=== PATIENT | male | born 1965 | race Hispanic/Latino ===

== ENCOUNTER 2017-08-11 11:31 | Outpatient (CLI) | payer BC ==
[~2017-08-11 11:31] MED LIST: Magnevist 469MG/ML 20 ML VIAL ONE
--- NOTE | 2017-08-11 13:34 | MRI ---
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 Technique: Multiplanar, multisequence MRI images were obtained of the brain without and with IV contr ast. FINDINGS: The previously seen lesion in the right temporal lobe, peripherally, is no longer present. There is a small amount of susceptibility artifact in this location which may represent a small amount of resid ual hemosiderin deposition in this location. No other signal abnormality is seen within the brain. No abnormal intracranial enhancement is seen. The expected flow voids are present. The corpus callosum, pituitary, and craniocervical junction are unremarkable. Post-surgical changes are seen in the right frontal calvarium. The paranasal sinuses and mastoid air cells are well aerated. IMPRESSION: Interval resection of the previously seen right frontal lobe mass. There is no evidence of recurrence and no additional masses are identified. POS: JHOAN
== END 2017-08-11 11:32 | disposition home or self-care (01) ==
LOC: SCSMRI 11:31
PROVIDERS: ATTEND Neurological Surgery
DX: D18.02 Hemangioma of intracranial structures (principal); Z98.890 Other specified postprocedural states
CPT/HCPCS: 70553; A9579

== ENCOUNTER 2019-04-05 08:02 | Outpatient (CLI) | payer BC ==
[2019-04-05 14:58] LABS: Bacteria/HPF None Seen HPF (None Seen); Bilirubin Negative (Negative); Blood, Urine Negative (Negative); Clarity Clear (Clear); Glucose, Urine (Dipstick) Normal (Negative); Leukocyte Negative Leu/uL (Negative); Nitrite Negative (Negative); Protein, Urine (Dipstick) Negative (Neg-Trace); RBC/HPF 0-3 HPF (0-3); Squamous Epithelial None Seen HPF (0-3); Urobilinogen Normal mg/dL (Less than 2); WBC/HPF 0-3 HPF (0-3)
[2019-04-05 14:59] LABS: #Basophils 0.1 thou/uL (0.0-0.2); #Eosinphils 0.2 thou/uL (0.0-0.7); #Lymphocytes 1.5 thou/uL (1.20-3.40); #Monocytes 0.5 thou/uL (0.11-0.59); #Neutrophils 3.6 thou/uL (1.40-6.50); %Basophils 0.9 % (0.0-1.0); %Eosinophils 3.2 % (0.0-10.0); %Lymphocytes 26.2 % (21.0-51.0); %Neutrophils 61.7 % (42.0-75.0); Hemoglobin 13.9 g/dL (14.0-18.0); Mean Corpuscular HGB CONC 33.2 g/dL (32.0-36.0); Mean Corpuscular Hemoglobin 31.8 pg (27.0-31.0); Mean Platelet Volume 8.2 fL (7.4-10.4); Platelet Count 299 thou/uL (130-400); RBC Distribution Width 11.4 % (11.5-14.5); Red Blood Cell (RBC) Count 4.37 mill/uL (4.70-6.10); White Blood Cell (WBC) Count 5.8 thou/uL (4.8-10.8)
[2019-04-05 15:04] LABS: INR-International Normal Ratio 0.9; Prothrombin Time 11.9 SEC (12.0-14.7)
[2019-04-05 15:18] LABS: Anion Gap 12 mmol/L (10-20); BUN (Urea Nitrogen) 14 mg/dL (8.4-25.7); Calc. Creatinine Clearance 0 mL/min (70-130); Calcium 9.1 mg/dL (7.8-10.44); Carbon Dioxide 30 mmol/L (22-29); Chloride 103 mmol/L (98-107); Estimated GFR-MDRD Greater than 90; Glucose 114 mg/dL (70-105); Potassium 4.2 mmol/L (3.5-5.1); Sodium 141 mmol/L (136-145)
== END 2019-04-05 08:03 | disposition home or self-care (01) ==
LOC: LABBT 08:02
PROVIDERS: ATTEND Orthopaedic Surgery
DX: Z01.812 Encounter for preprocedural laboratory examination (principal); M16.11 Unilateral primary osteoarthritis, right hip
CPT/HCPCS: 80048; 81001; 85025; 85610; 87081

== ENCOUNTER 2019-04-05 13:15 | Inpatient (IN) | payer BC ==
[2019-04-12] MEDS ORDERED: Sodium Chloride 0.9% 100 ML ONE (07:49)
[2019-04-12] MEDS ORDERED: Tranexamic Acid 1,000 MG/10 ML VIAL ONE (07:49)
[2019-04-12] MEDS ORDERED: Midazolam HCl 2 mg/2 ml Vial ONE (08:32)
[2019-04-12] MEDS ORDERED: Bupivacaine 0.25% 10 ML VIAL EPIDURAL PRN (08:45)
[2019-04-12] MEDS ORDERED: diphenhydrAMINE 25 MG CAP PO PRN ×2 (08:45→09:41)
[2019-04-12] MEDS ORDERED: Ondansetron PF 4 MG/2 ML Vial IVP PRN ×2 (08:45→09:41)
[2019-04-12] MEDS ORDERED: traMADol HCl 50 MG TAB PO PRN ×2 (08:45)
[2019-04-12] MEDS ORDERED: Hydrocerin (Eucerin) Cream 120 gm Jar TOP PRN (08:45)
[2019-04-12] MEDS ORDERED: diphenhydrAMINE 50 MG/ML VIAL IM PRN (08:45)
[2019-04-12] MEDS ORDERED: Promethazine HCl 25 MG/ML VIAL IM PRN ×3 (08:45→11:44)
[2019-04-12] MEDS ORDERED: Promethazine HCl 25 MG SUPP PR PRN (08:45)
[2019-04-12] MEDS ORDERED: diphenhydrAMINE 50 MG/ML VIAL IVP PRN (08:45)
[2019-04-12] MEDS ORDERED: Zolpidem Tartrate 5 MG TAB PO PRN ×2 (08:45→09:41)
[2019-04-12] MEDS ORDERED: Naloxone HCl 0.4 mg/ml Vial IVP PRN (08:45)
[2019-04-12] MEDS ORDERED: Naloxone HCl 0.4 mg/ml Vial IV PRN (08:45)
[2019-04-12] MEDS ORDERED: Bupivacaine 10 ML in Sodium Chloride 0.9% 90 ML EPIDURAL SCH (09:00)
[2019-04-12] MEDS ORDERED: Fentanyl 100 MCG/2 ML VIAL ONE ×4 (09:33→12:36)
[2019-04-12] MEDS ORDERED: Bupivacaine 0.25% HCL 30 ML VIAL ONE (09:33)
[2019-04-12] MEDS ORDERED: Lidocaine 2% Jelly 5 ML TUBE ONE (09:33)
[2019-04-12] MEDS ORDERED: Acetaminophen 325 MG TAB PO PRN (09:41)
[2019-04-12] MEDS ORDERED: HYDROcodone/Acetaminophen 10/325 mg Tablet PO PRN ×2 (09:41)
[2019-04-12] MEDS ORDERED: Non-Formulary Item 1 EACH (Acetaminophen [Tylenol] 2 TAB) PO PRN (09:43)
[2019-04-12] MEDS ORDERED: Lidocaine 1% PF 5 ML VIAL ONE (10:26)
[2019-04-12] MEDS ORDERED: Dexamethasone 20 MG/5 ML VIAL ONE (10:26)
[2019-04-12] MEDS ORDERED: Lidocaine 1.5% w/Epi 1:200K 30 ML VIAL (Epid Use) ONE (10:26)
[2019-04-12] MEDS ORDERED: PROPOFOL 200 MG/20 ML VIAL ONE (10:26)
[2019-04-12] MEDS ORDERED: Rocuronium Bromide 10 MG/ML (10ML VIAL) ONE (10:26)
[2019-04-12] MEDS ORDERED: Glycopyrrolate 0.2 MG/ML 5 ML SYRINGE ONE (10:26)
[2019-04-12] MEDS ORDERED: Ondansetron PF 4 MG/2 ML Vial ONE (11:41)
[2019-04-12] MEDS ORDERED: Ondansetron HCl/PF 4 MG/2 ML Vial IVP PRN (11:44)
[2019-04-12] MEDS ORDERED: Promethazine HCl 25 MG/ML VIAL SLOW IVP PRN (11:44)
--- NOTE | 2019-04-12 11:45 | OP ---
DATE OF PROCEDURE: 04/12/2019 This is Dani Delatorre PA-C dictating for Samir Purdy MD. ANESTHESIA: General via endotracheal tube, augmented with indwelling epidural. PREOPERATIVE DIAGNOSIS: End-stage bicompartmental osteoarthritis, right hip. POSTOPERATIVE DIAGNOSIS: End-stage bicompartmental osteoarthritis, right hip. PROCEDURE PERFORMED: Press-fit right total hip arthroplasty. SURGEON: Samir Purdy MD. [employer] MEMBER: Dani Delatorre PA-C COMPONENT USED: [employer] Tritanium size 54 mm press-fit, Tritanium acetabular shell, an Accolade II size 3 press-fit hip stem, 10 degree polyethylene fixed bearing insert, and a +7.5 mm ceramic femoral head. ESTIMATED BLOOD LOSS: 100 mL. SPECIMENS: None. DRAINS: None. COMPLICATIONS: None. COUNTS: Correct. FINDINGS: End-stage severe degenerative bicompartmental disease, [id number] arthrosis, periarticular osteophyte formation, large serous effusion, and hypertrophic synovium, changes consistent with degenerative bicompartmental OA. INPUT: 600 mL of crystalloid. OUTPUT: 300 mL of clear yellow urine. INDICATION FOR SURGERY: Alma is a 54-year-old male who has had progressive right hip, groin, and thigh pain for the last 5 to 7 years. He has failed conservative management, elected to proceed with total hip arthroplasty as definitive treatment of his pain. PROCEDURE IN DETAIL: After informed consent was obtained in the preoperative holding area, the patient was taken to the operative suite where general anesthesia was induced. The patient was then positioned in the lateral decubitus position. The hip was then prepped and draped in usual sterile fashion. The patient received preoperative antibiotics. Prior to incision, time-out was called and all members of the surgical team agreed upon site, surgeon, and patient. After this, a longitudinal incision was made directly over the trochanter, noted by palpation extending 2 fingerbreadths above and below the trochanter. The deeper subcutaneous layer was undermined with Bovie electrocautery. The iliotibial band was encountered and incised sharply and the plane below this was developed bluntly. A Charnley retractor was placed to hold this opened. The lateral aspect of the trochanter and the abductor muscles were encountered and then reflected anteriorly off the trochanter using Bovie electrocautery. Once this was completed, the anterior capsule was then encountered and identified and copious capsulotomy was carried out, exposing the femoral neck and head. Dislocation maneuver was then performed and an in situ provisional neck cut was then made using the oscillating saw. Attention was then turned to acetabular preparation. Sequential reaming was carried out up to the appropriate diameter and a trial was then malleted into place with good firm resistance and no pullout. The permanent acetabular shell was then malleted squarely into place, as was the appropriate liner. Once completed, the wound was copiously irrigated and attention was then turned to femoral preparation. Flexion and external rotation were performed of the exposed thigh and femoral elevators were then placed at the proximal aspect of the wound. Canal finder was used to establish the length of the canal and sequential reaming was carried out, followed by broaching. Once the appropriate stability was established with the trial broaches with flexion, extension and rotational stability, we did trial with neutral and 2 mm offset incremental necks. Once the appropriate size was decided upon, with good stability noted with flexion, extension, internal and external rotation and shuck being negative, we removed the femoral trial broach and malletted into place the permanent prosthesis with good firm fit, which was also stable to rotation. Again, the hip felt very stable to flexion, extension, internal and external rotation. Leg lengths appeared near anatomic clinically and we were quite happy with prosthesis placement. Copious irrigation was then carried out through the entirety of the wound. Primary closure of the abductors was accomplished with interrupted #2 Vicryl [id number] stitches and the IT band was then closed with interrupted #2 Vicryl, oversewn with a #2 running barbed Quill stitch. Subcutaneous fascia was closed with running barbed Quill stitch and a subcuticular Monocryl barbed Quill stitch was used for skin closure and augmented with skin cement. A sterile dressing was applied. The procedure was terminated without any complication. All counts were correct. The patient was awakened in the operative suite and taken to the recovery room in stable condition. Job ID: [id number]
[2019-04-12] MEDS ORDERED: Ketorolac Tromethamine 30 MG/ML VIAL ONE (11:55)
--- NOTE | 2019-04-12 12:28 | RAD ---
XR Hip Rt 2-3 View INDICATION: Postop right hip COMPARISON: March 27 2019 FINDINGS: Bones: No acute osseous abnormality. Bone mineralization appears within normal limits. Hip joint: There is been interval placement of a right total hip arthroplasty. Prosthetic components project in the expected position. SI joints and symphysis pubis: Radiographically normal. Intrapelvic contents: Visualized bowel gas pattern is within normal limits. Surrounding soft tissues: There is mild surrounding soft tissue gas consistent patient's recent posto perative state. IMPRESSION: 1. Postoperative right hip
[2019-04-12] MEDS: Acetaminophen 500 MG TAB PO SCH ×3 (15:36→23:12)
[2019-04-12] MEDS: Sodium Chloride 0.9% 1,000 ML IV SCH ×2 (15:36→19:38)
[2019-04-12] MEDS: Ketorolac Tromethamine 30 MG/ML VIAL IVP SCH ×3 (15:37→23:11)
[2019-04-12] MEDS: CEFAZOLIN 2 GM in Premix Bag 1 BAG IVPB SCH ×2 (16:34→23:11)
[2019-04-12 18:35] VITALS: BMI 25.5
[2019-04-12] MEDS: Aspirin 81 mg Enteric Coated Tablet PO SCH (19:58)
[2019-04-12] MEDS ORDERED: Atorvastatin Calcium 10 MG TAB PO SCH (21:00)
--- NOTE | 2019-04-12 23:35 | PDOC.HOSPP ---
- Subjective Encounter Date: 04/12/19 Encounter Time: 19:30 Subjective: Patient seen and examined for med mngt. Follows Dr Lazar. Pain controlled. No new complaints. - Objective Vital Signs & Weight: Vital Signs (12 hours) Temp Pulse Resp BP Pulse Ox 04/12/19 21:05 98.8 F 70 18 123/68 95 04/12/19 18:47 64 14 127/66 04/12/19 16:10 63 12 120/68 04/12/19 15:10 73 16 149/74 H 04/12/19 14:40 52 L 18 122/67 04/12/19 14:10 68 16 156/83 H 04/12/19 13:40 98 F 51 L 16 159/74 H 96 Weight Weight 168 lb Result Diagrams: 04/13/19 05:04 EKG Reviewed by me: Yes (Tele strips - SR) Hospitalist ROS - Review of Systems Respiratory: denies: cough, dry, shortness of breath, hemoptysis, SOB with excertion, pleuritic pain, sputum, wheezing, other Cardiovascular: denies: chest pain, palpitations, orthopnea, paroxysmal noc. dyspnea, edema, light headedness, other Gastrointestinal: denies: nausea, vomiting, abdominal pain, diarrhea, constipation, melena, hematochezia, other - Medication Medications: Active Medications Generic Name Dose Route Start Last Admin Trade Name Freq PRN Reason Stop Dose Admin Acetaminophen 1,000 mg 04/12/19 12:00 04/12/19 23:12 Tylenol PO Not Given Q6HR ISAK Aspirin 81 mg 04/12/19 21:00 04/12/19 19:58 Ecotrin PO 81 mg BID ISAK Administration Atorvastatin Calcium 10 mg 04/12/19 21:00 04/12/19 19:58 Lipitor PO 10 mg HS ISAK Administration Cefazolin Sodium/Dextrose 2 gm 50 mls @ 100 mls/hr 04/12/19 16:00 04/12/19 23 :11 / Device IVPB 04/13/19 00:28 50 mls [id number] ISAK Administration Sodium Chloride 1,000 mls @ 100 mls/hr 04/12/19 09:45 04/12/19 19:38 Normal Saline 0.9% IV Not Given .Q10H ISAK Ketorolac Tromethamine 30 mg 04/12/19 12:00 04/12/19 23:11 Toradol IVP 04/14/19 06:01 30 mg Q6HR ISAK Administration - Exam General Appearance: NAD Neck: supple, no JVD Heart: RRR, no gallops Respiratory: CTAB, no rales Gastrointestinal: non-tender, non-distended, normal bowel sounds Extremities: no cyanosis Neurological: no new deficit Hosp A/P (1) HLD (hyperlipidemia) Code(s): E78.5 - HYPERLIPIDEMIA, UNSPECIFIED Status: Chronic (2) DJD (degenerative joint disease) Code(s): M19.90 - UNSPECIFIED OSTEOARTHRITIS, UNSPECIFIED SITE Status: Chronic - Plan DVT proph w/SCDs Cont Statins Cont Postop care DVT prophylaxis IS Will follow PRN
[2019-04-13] MEDS: Sodium Chloride 0.9% 1,000 ML IV SCH (04:47)
[2019-04-13] MEDS: Ketorolac Tromethamine 30 MG/ML VIAL IVP SCH ×2 (05:01→12:00)
[2019-04-13] MEDS: Acetaminophen 500 MG TAB PO SCH ×2 (05:01→12:00)
[2019-04-13 05:18] LABS: Hemoglobin 12.1 g/dL (14.0-18.0); Mean Platelet Volume 8.2 fL (7.4-10.4); Platelet Count 224 thou/uL (130-400); RBC Distribution Width 11.3 % (11.5-14.5); Red Blood Cell (RBC) Count 3.91 mill/uL (4.70-6.10); White Blood Cell (WBC) Count 9.2 thou/uL (4.8-10.8)
[2019-04-13] MEDS: Aspirin 81 mg Enteric Coated Tablet PO SCH (08:45)
[2019-04-13] MEDS ORDERED: Ferrous Gluconate 324 MG TAB PO SCH (09:00)
[2019-04-13] MEDS ORDERED: Senokot S 8.6-50 MG TAB PO SCH (09:00)
[2019-04-13] MEDS ORDERED: Multivitamin W/ Minerals 1 TAB PO SCH (09:00)
--- NOTE | 2019-04-13 11:15 | DIS ---
DATE OF ADMISSION: 04/12/2019 DATE OF DISCHARGE: 04/13/2019 CONSULTANTS: [facility]. PREOPERATIVE DIAGNOSIS: End-stage bicompartmental osteoarthritis, right hip. POSTOPERATIVE DIAGNOSIS: End-stage bicompartmental osteoarthritis, right hip. PROCEDURE PERFORMED: Press-fit right total hip arthroplasty. BRIEF HOSPITAL COURSE: This is a 54-year-old male, who has end-stage severe degenerative bicompartmental disease with [id number] arthrosis, periarticular osteophyte formation, and large serous effusion. He was indicated for the above-mentioned procedure, who after failing outpatient conservative management elected to proceed with this procedure. He did well in the operative suite and postoperatively was admitted to [address] Here, he worked with physical and occupational therapist. His pain was managed by [facility]. He was up to bedside on the day of surgery and ambulating. On postoperative day #1, he continued to progress quite nicely and was doing extremely well. No complications incurred throughout his hospital stay. On postoperative day #1, he was indicated for discharge home. DISCHARGE DISPOSITION: Home. DISCHARGE CONDITION: Stable. DISCHARGE INSTRUCTIONS: The patient will follow up with Dr. Purdy as scheduled. He will take medication as prescribed. He will keep the surgical site clean, dry, and intact. DISCHARGE MEDICATIONS: See JAMARCUS. Job ID: [id number]
[2019-04-13 11:23] VITALS: BP 146/78; TEMP 98.1
== END 2019-04-13 12:45 | disposition home or self-care (01) | DRG 470 ==
LOC: SJJU 04-12 07:22
PROVIDERS: ADMIT Orthopaedic Surgery; ATTEND Orthopaedic Surgery
PROC: 0SR904A Replacement of Right Hip Joint with Ceramic on Polyethylene Synthetic Substitute, Uncemented, Open Approach (ICD-10-PCS; principal; 2019-04-12)
DX: M16.11 Unilateral primary osteoarthritis, right hip (principal); E78.5 Hyperlipidemia, unspecified; J30.2 Other seasonal allergic rhinitis; Z87.891 Personal history of nicotine dependence; Z79.899 Other long term (current) drug therapy
CPT/HCPCS: 36415; 85027; J0690; J1100; J1885; J2001; J2250; J2405; J2704; J3010; J3370; J3490; S0020

== ENCOUNTER 2024-11-19 09:40 | Outpatient (CLI) | payer BC | END 2024-11-19 09:41 | disposition home or self-care (01) | LOC: SCSRAD 09:40 | PROVIDERS: ATTEND Family Medicine Sports Medicine | DX: M54.50 Low back pain, unspecified (principal); R05.3 Chronic cough; M47.816 Spondylosis without myelopathy or radiculopathy, lumbar region | CPT/HCPCS: 71046; 72100 ==

== ENCOUNTER 2024-11-30 07:32 | Outpatient (CLI) | payer BC | END 2024-11-30 07:33 | disposition home or self-care (01) | LOC: SCSMRI 07:32 | PROVIDERS: ATTEND Internal Medicine | DX: K86.89 Other specified diseases of pancreas (principal) | CPT/HCPCS: 36415; 74183; 76376; 82565; S8037 ==